=== PATIENT | male | born 1940 | race Two or more races ===

== ENCOUNTER 2021-12-28 12:54 | Emergency (ER) | payer MEDICAID, MEDICARE, OTHER ==
[2021-12-28 14:42] LABS: Basophils # (auto) 0 10 ^3/uL (0-0.2); Basophils % (auto) 0.5 % (0.0-2.0); Eosinophils # (auto) 0 10 ^3/uL (0-0.8); Eosinophils % (auto) 0.2 % (0.0-7.0); Hematocrit 39.2 % (41.0-53.0); Hemoglobin 13.3 g/dL (13.5-17.5); Lymphocytes # (auto) 0.6 10 ^3/uL (0.4-5.4); Lymphocytes % (auto) 6.7 % (10.0-50.0); Mean Corpuscular Hemoglobin 31.2 pg (28.0-32.0); Mean Corpuscular Hgb Conc. 33.9 g/dL (32.0-36.0); Monocytes # (auto) 0.4 10 ^3/uL (0-1.3); Monocytes % (auto) 4.5 % (0.0-12.0); Neutrophils # (auto) 7.3 10 ^3/uL (1.6-8.6); Neutrophils % (auto) 88.1 % (37.0-80.0); Red Blood Cells 4.26 10^6/uL (4.5-5.90); Red Cell Distribution Width 13.6 % (11.8-14.3); White Blood Cell 8.3 10^3/uL (4.4-10.8)
[2021-12-28 15:03] LABS: Calcium 8.8 mg/dL (8.5-10.1); Potassium 4.9 mmol/L (3.5-5.1)
[2021-12-28 15:04] LABS: Bilirubin, Total 0.6 mg/dL (0.2-1.0); Total Protein 6.9 g/dL (6.4-8.2)
[2021-12-28 15:48] LABS: INR 1.06 (0.9-1.15); Partial Thromboplastin Time 28.6 sec (24.6-33.4)
== END 2021-12-28 17:12 | disposition left against medical advice (07) ==
LOC: ER 12:54 → EDBD 12:54 → ER 17:12
DX: S01.01XA Laceration without foreign body of scalp, initial encounter (principal); G89.29 Other chronic pain; M54.9 Dorsalgia, unspecified; W01.0XXA Fall on same level from slipping, tripping and stumbling without subsequent striking against object, initial encounter; Y93.89 Activity, other specified; Y92.89 Other specified places as the place of occurrence of the external cause; Y99.8 Other external cause status
CPT/HCPCS: 12005; 36415; 70450; 71045; 80053; 83880; 84484; 85025; 85610; 85730

== ENCOUNTER 2022-01-10 09:09 | Emergency (ER) | payer MEDICAID ==
[~2022-01-10] VITALS: Ht 160 cm; Wt 145.0 kg
[2022-01-10 10:40] VITALS: BP 131/61
== END 2022-01-10 11:05 | disposition home or self-care (01) ==
LOC: ER 09:09
DX: S01.81XD Laceration without foreign body of other part of head, subsequent encounter (principal); W18.39XD Other fall on same level, subsequent encounter

== ENCOUNTER 2024-02-02 10:05 | Inpatient (IN) | payer OTHER, MEDICARE, MEDICAID ==
[~2024-02-02] VITALS: Ht 160 cm; Wt 61.0 kg
--- NOTE | 2024-02-02 11:14 | ED.PDOC ---
HPI (NEURO) HPI Comments 83 year old male presents to the ED with chief complaint of headache. Patient reports that he has been experiencing a headache for the past few days along with associated weakness since this morning. Patient relays that he was unable to stand on his own this morning and fell right away due to being too weak. Patient denies any chest pain, SOB, N/V/D, abdominal pain, dizziness, numbness, or blurred vision. Chief Complaint: Flu like Time Seen by MD: 11:11 Primary Care Provider: MENDEZ Reviewed Notes: Nurses Notes, Medications, Allergies Information Source: Patient Mode of Arrival: Wheelchair Severity: Moderate Dizziness/Weakness Severity: Unable to do activities Headache Severity: Moderate Timing: Hours Duration: Since onset Prehospital treatment: None Headache Quality: Aching Headache Location: Generalized Weakness Location: Generalized Onset: At rest Circumstances: Spontaneous Symptoms: Weakness History of: None Modifying factors: Nothing Associated Signs and Symptoms: Headache, Weakness Past Medical History PAST MEDICAL HISTORY: Denies Surgical History: Denies all surgeries Family History Family History: Reviewed,noncontributory to illness Social History Smoker: Non-Smoker Alcohol: Denies ETOH Use Drugs: Denies Drug Use Lives In: Home Constitutional: reports: weakness; denies: chills, diaphoresis, fatigue, fever, malaise, sweats, others EENTM: denies: blurred vision, double vision, ear bleeding, ear discharge, ear drainage, ear pain, ear ringing, eye pain, eye redness, hearing loss, mouth pain, mouth swelling, nasal discharge, nose bleeding, nose congestion, nose pain, photophobia, tearing, throat pain, throat swelling, voice changes, others Respiratory: denies: cough, hemoptysis, orthopnea, SOB at rest, shortness of breath, SOB with excertion, stridor, wheezing, others Cardiovascular: denies: chest pain, dizzy spells, diaphoresis, Dyspnea on exertion, edema, irregular heart beat, left arm pain, lightheadedness, palpitations, PND, syncope, others Gastrointestinal: denies: abdomen distended, abdominal pain, blood streaked bowels, constipated, diarrhea, dysphagia, difficulty swallowing, hematemesis, melena, nausea, poor appetite, poor fluid intake, rectal bleeding, rectal pain, vomiting, others Genitourinary: denies: burning, dysuria, flank pain, frequency, hematuria, incontinence, penile discharge, penile sore, pain, testicle pain, testicle swelling, urgency, others Neurological: reports: headache; denies: dizziness, fainting, left sided numbness, left sided weakness, numbness, paresthesia, pre-existing deficit, right sided numbness, right sided weakness, seizure, speech problems, tingling, tremors, weakness, others Musculoskeletal: denies: back pain, gout, joint pain, joint swelling, muscle pain, muscle stiffness, neck pain, others Integumetry: denies: bruises, change in color, change in hair/nails, dryness, laceration, lesions, lumps, rash, wounds, others Allergic/Immunocompromised: denies: Difficulty Healing, Frequent Infections, Hives, Itching, others Hematologic/Lymphatic: denies: anemia, blood clots, easy bleeding, easy bruising, swollen glands, others Endocrine: denies: excessive hunger, excessive sweating, excessive thirst, excessive urination, flushing, intolerance to cold, intolerance to heat, unexplained weight gain, unexplained weight loss, others Psychiatric: denies: anxiety, bipolar disorder, depression, hopeless, panic disorder, schizophrenia, sleepless, suicidal, others All Other Systems: Reviewed and Negative Physical Exam General Appearance: Moderate Distress, Normal HEENT: Normal ENT Inspection, PERRL/EOMI Neck: Full Range of Motion, Non-Tender, Normal, Normal Inspection Respiratory: Chest Non-Tender, Lungs Clear, No Accessory Muscle Use, No Respiratory Distress, Normal Breath Sounds Cardiovascular: No Edema, No JVD, No Murmur, No Gallop, Normal Peripheral Pulses, Regular Rate/Rhythm Breast Exam: Deferred Gastrointestinal: No Organomegaly, Non Tender, No Pulsatile Mass, Normal Bowel Sounds, Soft Genitalia: Deferred Pelvic: Deferred Rectal: Deferred Extremities: No calf tenderness, Normal capillary refill, Normal inspection, Normal range of motion, Non-tender, No pedal edema Musculoskeletal : Apperance: Normal Neurologic: Alert, porcelain enamel repairer II-XII nml as Tested, No Motor Deficits, Normal Affect, Normal Mood, No Sensory Deficits Cerebellar Function: NOT DONE Reflexes: NOT DONE Skin: Dry, Normal Color, Warm Peripheral Pulses: 3+ Radial (R), 3+ Radial (L) Lymphatic: No Adenopathy Was a procedure done? Was a procedure done?: No Differential Diagnosis (SZ) Seizure: Psychogenic Seizure, Closed Head Injury, CVA/TIA X-Ray, Labs, Meds, VS Vital Signs Date Time Temp Pulse Resp B/P (MAP) Pulse Ox O2 Delivery O2 Flow Rate FiO2 02/02/24 15:00 82 16 98 Room Air* 0 21 02/02/24 15:00 98.1 82 16 119/65 (83) 98 98.1 02/02/24 10:20 98.6 83 16 112/65 (81) 98 Lab Test 02/02/24 11:06 Range/Units White Blood Count 8.3 4.4-10.8 10^3/uL Red Blood Count 4.07 L 4.5-5.90 10^6/uL Hemoglobin 12.6 L 13.5-17.5 g/dL Hematocrit 36.9 L 41.0-53.0 % Mean Corpuscular Volume 90.5 80.0-100.0 fL Mean Corpuscular Hemoglobin 31.0 28.0-32.0 pg Mean Corpuscular Hemoglobin Concent 34.3 32.0-36.0 g/dL Red Cell Distribution Width 14.2 11.8-14.3 % Platelet Count 188 140-450 10^3/uL Mean Platelet Volume 6.7 L 6.9-10.8 fL Neutrophils (%) (Auto) 94.2 H 37.0-80.0 % Lymphocytes (%) (Auto) 2.7 L 10.0-50.0 % Monocytes (%) (Auto) 3.0 0.0-12.0 % Eosinophils (%) (Auto) 0.0 0.0-7.0 % Basophils (%) (Auto) 0.1 0.0-2.0 % Neutrophils # (Auto) 7.8 1.6-8.6 10 ^3/uL Lymphocytes # (Auto) 0.2 L 0.4-5.4 10 ^3/uL Monocytes # (Auto) 0.2 0-1.3 10 ^3/uL Eosinophils # (Auto) 0 0-0.8 10 ^3/uL Basophils # (Auto) 0 0-0.2 10 ^3/uL Nucleated Red Blood Cells 0.0 % Sodium Level 137 136-145 mmol/L Potassium Level 4.3 3.5-5.1 mmol/L Chloride Level 103 98-107 mmol/L Carbon Dioxide Level 27 20-31 mmol/L Anion Gap 7 5-15 Blood Urea Nitrogen 18 9-23 mg/dL Creatinine 1.19 0.700-1.30 mg/dL Glomerular Filtration Rate Calc 60 >90 mL/min BUN/Creatinine Ratio 15.1 10.0-20.0 Serum Glucose 131 H 74-106 mg/dL Calcium Level 9.5 8.7-10.4 mg/dL [place] [id number] Ph: [phone] DIAGNOSTIC IMAGING Diagnostic Imaging Report : [id number] Signed PATIENT: LLOA CARTER ACCT: [id number] UNIT: [id number] : 1940 LOC: ER ROOM / BED: / AGE / SEX: 83 / M ADM STATUS: REG ER SERVICE 1051 ORDERING PHYSICIAN: TONI JIMENEZ MD PROCEDURE(s): CXRP - CHEST PORTABLE REASON: sob ORDER NUMBER(s): [id number], ACCESSION NUMBER(s): [id number] CHEST RADIOGRAPH Indication: sob Technique: Single frontal view of the chest was obtained Comparison: CHEST PORTABLE on DOS: 12/28/21 FINDINGS: Lines and Tubes: None Lungs: Left basilar opacity. Pleura: No effusion. No pneumothorax. Cardiomediastinal contours: Cardiomegaly. Bones: No acute osseous abnormality. Thoracolumbar hardware noted. IMPRESSION: 1. Left basilar opacity. ATED BY: MOHIT RONDON MD DICTATED DATE/TIME: 02/02/24 115 SIGNED BY: MOHIT RONDON MD SIGNED DATE/TIME: 02/02/24 115 CC: Patient alert. He has been having headaches wishes chronic. Vitals stable. Answering all questions. Possible pneumonia. More than the headache she has been having generalized body aches. Establish intravenous access. Was given Rocephin. Was given azithromycin. Chest shows early pneumonia. Explained to the patient. Continue cardiac monitoring. Time of 1ST Reevaluation: 12:11 Reevaluation 1ST: Unchanged Patient Education/Counseling: Diagnosis, Treatment Family Education/Counseling: No Family Present Additional Information I reviewed the following notes from patient's past medical encounters: 12/28/21 for head injury The following tests were ordered, and results were reviewed by me: Chest XR, CBC, BMP, UA I reviewed and agreed with the following test results read by other providers: Chest XR I discussed treatment and results with medical personnel. Departure 1 Departure Time of Disposition: 15:09 Impression: Primary Impression: Pneumonia Qualified Codes: J18.9 - Pneumonia, unspecified organism Disposition: ADMITTED INPATIENT Admit to: Med Surg Condition: Guarded Critical Care Note Critical Care Time?: Yes (45 min-critical care time only) Stability Stability form required: No Heart Score Heart Score: Heart Score Response (Comments) Value History N/A 0 EKG N/A 0 Age N/A 0 Risk Factors N/A 0 Troponin N/A 0 Total 0 I personally scribed for TONI JIMENEZ MD ([email or web address]) on 02/02/24 at 11:14. Electronically submitted by Chris Moran ([email or web address]). I personally scribed for TONI JIMENEZ MD ([email or web address]) on 02/02/24 at 13:43. Electronically submitted by Laura Rogers ([email or web address]). I personally scribed for TONI JIMENEZ MD ([email or web address]) on 02/02/24 at 13:44. Electronically submitted by Laura Rogers ([email or web address]). I personally scribed for TONI JIMENEZ MD ([email or web address]) on 02/02/24 at 17:15. Electronically submitted by Laura Rogers ([email or web address]). TONI JIMENEZ MD Feb 02, 2024 11:14
[2024-02-02 11:34] LABS: Basophils # (auto) 0 10 ^3/uL (0-0.2); Basophils % (auto) 0.1 % (0.0-2.0); Eosinophils # (auto) 0 10 ^3/uL (0-0.8); Hematocrit 36.9 % (41.0-53.0); Hemoglobin 12.6 g/dL (13.5-17.5); Lymphocytes # (auto) 0.2 10 ^3/uL (0.4-5.4); Lymphocytes % (auto) 2.7 % (10.0-50.0); Mean Corpuscular Hgb Conc. 34.3 g/dL (32.0-36.0); Mean Corpuscular Volume 90.5 fL (80.0-100.0); Monocytes # (auto) 0.2 10 ^3/uL (0-1.3); Neutrophils # (auto) 7.8 10 ^3/uL (1.6-8.6); Neutrophils % (auto) 94.2 % (37.0-80.0); Platelet Count (auto) 188 10^3/uL (140-450); Red Blood Cells 4.07 10^6/uL (4.5-5.90); Red Cell Distribution Width 14.2 % (11.8-14.3); White Blood Cell 8.3 10^3/uL (4.4-10.8)
[2024-02-02 11:43] LABS: Chloride 103 mmol/L (98-107); Potassium 4.3 mmol/L (3.5-5.1); Sodium 137 mmol/L (136-145)
[2024-02-02 11:44] LABS: Anion Gap 7 (5-15); Carbon Dioxide 27 mmol/L (20-31)
[2024-02-02 11:45] LABS: Calcium 9.5 mg/dL (8.7-10.4)
[2024-02-02 11:50] LABS: BUN/Creatinine Ratio 15.1 (10.0-20.0); Blood Urea Nitrogen 18 mg/dL (9-23)
--- NOTE | 2024-02-02 11:57 | DVH ---
CHEST RADIOGRAPH Indication: sob Technique: Single frontal view of the chest was obtained Comparison: CHEST PORTABLE on DOS: 12/28/21 FINDINGS: Lines and Tubes: None Lungs: Left basilar opacity. Pleura: No effusion. No pneumothorax. Cardiomediastinal contours: Cardiomegaly. Bones: No acute osseous abnormality. Thoracolumbar hardware noted. IMPRESSION: 1. Left basilar opacity.
[2024-02-02 12:02] LABS: Glucose 131 mg/dL (74-106)
[2024-02-02 15:00] VITALS: PULSE 82; RESP 16; O2SAT 98
--- NOTE | 2024-02-02 15:44 | DVHHP2 ---
History of Present Illness Reason for Visit: Left shoulder pain status post fall from bed History of Present Illness Jovon Landin is a 83-year-old male with past medical history of hypertension, hyperlipidemia, COPD, and on hospice care who presents to the ED today for left shoulder pain after a fall this morning. Patient states that he was dizzy and he fell today also 2 days ago. Patient states that he lives alone and he also has a hospice nurse who comes and sees him for his heart problem. Patient denies any chest pain, shortness of breath, fever, chills, nausea, vomi ting, dizziness, diarrhea, lightheadedness, and abdominal pain. Patient's daughter Dori reported that the patient was constipated and took lactulose last couple of days. Cardiovascular: HTN, hyperipidemia Pulmonary: COPD Past Surgical History: Other Past Surgical History Back surgery Family History: None Smoke: No ALCOHOL: none Drugs: None Lives: Alone Domestic Violence: Neg Review of Systems Constitutional: No: Fever, Chills, Sweats, Weakness, Malaise, Other Eyes: No: Pain, Vision change, Conjunctivae inflammation, Eyelid inflammation, Other, Redness ENT: No: Ear pain, Ear discharge, Nose pain, Nose discharge, Nose congestion, Mouth pain, Mouth swelling, Throat pain, Throat swelling, Other Respiratory: No: Cough, Dry, Shortness of breath, SOB with excertion, Wheezing, Hemoptysis, Pleuritic Pain, Sputum, Wheezing, Other Cardiovascular: No: Chest Pain, Palpitations, Orthopnea, Paroxysmal Noc. Dyspnea, Edema, Lt Headedness, Other Gastrointestinal: Constipation, Other (constipated); No: Nausea, Vomiting, Ab dominal Pain, Diarrhea, Melena, Hematochezia Genitourinary: No Dysuria, No Frequency, No Incontinence, No Hematuria, No Retention, No Other Musculoskeletal: shoulder pain; No: other, neck pain, arm pain, back pain, hand pain, leg pain, foot pain Skin: No: Rash, Lesions, Jaundice, Bruising, Other Neurological: No: Weakness, Numbness, Incoordination, Change in speech, Confusion, Seizures, Other Allergies: Coded Allergies: NO KNOWN ALLERGIES (Unverified , 12/28/21) Exam Vital Signs Vital Signs Date Time Temp Pulse Resp B/P (MAP) Pulse Ox O2 Delivery O2 Flow Rate FiO2 02/02/24 15:00 82 16 98 Room Air* 0 21 02/02/24 15:00 98.1 119/65 (83) 98.1 General Appearance: Alert, Oriented X3, Cooperative, No acute distress HEENT: Atraumatic, PERRLA, EOMI, Mucous membr. moist/pink Respiratory: Clear to auscultation, Normal air movement Cardiovascular: Regular rate, Normal S1, Normal S2, No murmurs Abdominal: Normal bowel sounds, Soft, No tenderness, No hepatospenomegaly, No masses Extremities: No clubbing, No cyanosis, No edema, Normal pulses, No tenderness/swelling Skin: No rashes, No breakdown, No significant lesion Neuro: Normal speech, Strength at 5/5 X4 ext, Normal tone, Sensation intact Psych/Mental Status: Mental status NL, Mood NL Labs/Xrays Labs Test 02/02/24 11:06 Range/Units White Blood Count 8.3 4.4-10.8 10^3/uL Red Blood Count 4.07 L 4.5-5.90 10^6/uL Hemoglobin 12.6 L 13.5-17.5 g/dL Hematocrit 36.9 L 41.0-53.0 % Mean Corpuscular Volume 90.5 80.0-100.0 fL Mean Corpuscular Hemoglobin 31.0 28.0-32.0 pg Mean Corpuscular Hemoglobin Concent 34.3 32.0-36.0 g/dL Red Cell Distribution Width 14.2 11.8-14.3 % Platelet Count 188 140-450 10^3/uL Mean Platelet Volume 6.7 L 6.9-10.8 fL Neutrophils (%) (Auto) 94.2 H 37.0-80.0 % Lymphocytes (%) (Auto) 2.7 L 10.0-50.0 % Monocytes (%) (Auto) 3.0 0.0-12.0 % Eosinophils (%) (Auto) 0.0 0.0-7.0 % Basophils (%) (Auto) 0.1 0.0-2.0 % Neutrophils # (Auto) 7.8 1.6-8.6 10 ^3/uL Lymphocytes # (Auto) 0.2 L 0.4-5.4 10 ^3/uL Monocytes # (Auto) 0.2 0-1.3 10 ^3/uL Eosinophils # (Auto) 0 0-0.8 10 ^3/uL Basophils # (Auto) 0 0-0.2 10 ^3/uL Nucleated Red Blood Cells 0.0 % Sodium Level 137 136-145 mmol/L Potassium Level 4.3 3.5-5.1 mmol/L Chloride Level 103 98-107 mmol/L Carbon Dioxide Level 27 20-31 mmol/L Anion Gap 7 5-15 Blood Urea Nitrogen 18 9-23 mg/dL Creatinine 1.19 0.700-1.30 mg/dL Glomerular Filtration Rate Calc 60 >90 mL/min BUN/Creatinine Ratio 15.1 10.0-20.0 Serum Glucose 131 H 74-106 mg/dL Calcium Level 9.5 8.7-10.4 mg/dL CHEST RADIOGRAPH Indication: sob Technique: Single frontal view of the chest was obtained Comparison: CHEST PORTABLE on DOS: 12/28/21 FINDINGS: Lines and Tubes: None Lungs: Left basilar opacity. Pleura: No effusion. No pneumothorax. Cardiomediastinal contours: Cardiomegaly. Bones: No acute osseous abnormality. Thoracolumbar hardware noted. IMPRESSION: 1. Left basilar opacity. Assessment/Plan Assessment/Plan Assessment/Plan: Rule out pneumonia Left shoulder pain status post fall X-ray left shoulder UA Chest x-ray IV antibiotics Labs EKG Chronic hypertension monitor Chronic hyperlipidemia monitor COPD resp txs FEN/PPX Diet HL DVT ppx - not indicated patient ambulating PUD ppx - not indicated no history of GI bleed or GERD Discussed plan of care with patient and nurse No home medications reconciled Admit to med surge Plan discussed with: Patient My Orders Orders - KOMAL ZAMARRIPA LEAD DEVELOPER Procedure Category Date Status Time Rapid Influenza A&B LAB 02/02/24 Logged 15:20 Covid19 Antigen [place] LAB 02/02/24 Logged L Shoulder 1v Xray XY 02/02/24 Logged 15:20 Admit ADMIT 02/02/24 Verified 15:35 Allergies VICKI 02/02/24 Verified 15:35 Code Status CODE 02/02/24 Verified 15:35 Hydrocodone-Acet PHA 02/02/24 Verified 5/325mg Tab ([place] 15:45 Ondansetron Hcl PHA 02/02/24 Verified (Zofran) 15:45 Complete Blood Count LAB 02/03/24 Verified 04:00 Comprehensive LAB 02/03/24 Verified Metabolic Panel 04:00 Cardiac DIET 02/02/24 Verified Diet-2gna,Lofat,Lochol Dinner Acetaminophen Tablet PHA 02/02/24 Verified (Tylenol Tablet) 15:45 Morphine Sulfate PHA 02/02/24 Verified Injection 15:45 Date of Service: Feb 02, 2024 Billing Provider: KOMAL ZAMARRIPA Common Visit Codes: [id number] INP/OBS CARE (HIGH) KOMAL ZAMARRIPA Feb 02, 2024 15:44
[2024-02-02] MEDS ORDERED: AZITHROMYCIN 500MG/ 250ML 250 ML IV ONE (15:45)
[2024-02-02] MEDS ORDERED: ALBUTEROL SULF 2.5 MG/0.5ML(0.5%) NEB SOLN NEB PRN (15:45)
[2024-02-02] MEDS ORDERED: IPRATROPIUM BROM 0.5 MG/2.5ML INH SOL NEB PRN (15:45)
--- NOTE | 2024-02-02 16:08 | DVH ---
CLINICAL INDICATION: left shoulder pain TECHNIQUE: 2 radiographic views of the left shoulder were obtained. Comparison: None FINDINGS/IMPRESSION: There is no evidence of acute fracture or dislocation. Moderate to severe degenerative changes of the glenohumeral joint. Superior displacement of the grayson ral head with narrowing of the acromial humeral interval consistent with chronic rotator cuff injury. The visualized lungs are clear. Partially visualized thoracolumbar fixation hardware.
[2024-02-02 16:17] LABS: Rapid Influenza A Negative (Negative); Rapid Influenza B Negative (Negative)
[2024-02-02 16:18] LABS: COVID19 ANTIGEN SOFIA FIA NEGATIVE (NEGATIVE)
[2024-02-02] MEDS: cefTRIAXone 1GM/50ML D5W 50 ML IV ONE (17:46)
[2024-02-02] MEDS: AZITHROMYCIN 250 MG TAB PO ONE (17:48)
[2024-02-02] MEDS: MORPHINE SULFATE INJ 2 MG/ml SYRG IV PRN (18:07)
[2024-02-02 21:30] VITALS: BP 131/60; PULSE 79; RESP 18; TEMP 98.1; O2SAT 95
[2024-02-02 23:00] VITALS: O2SAT 97
[2024-02-03] VITALS (10 sets, daily range): BP systolic 129–157; BP diastolic 60–86; PULSE 79–89; RESP 15–19; TEMP 97.7–98.4; O2SAT 95–98
[2024-02-03 07:26] LABS: Albumin 4.1 g/dL (3.2-4.8); Anion Gap 7 (5-15); BUN/Creatinine Ratio 16.2 (10.0-20.0); Blood Urea Nitrogen 17 mg/dL (9-23); Calcium 9.7 mg/dL (8.7-10.4); Carbon Dioxide 27 mmol/L (20-31); Chloride 105 mmol/L (98-107); Glucose 102 mg/dL (74-106); Potassium 3.9 mmol/L (3.5-5.1); Sodium 139 mmol/L (136-145)
[2024-02-03 07:27] LABS: Total Protein 6.9 g/dL (5.7-8.2)
[2024-02-03 07:36] LABS: Alanine Aminotransferase 155 U/L (7-40); Alkaline Phosphatase 319 U/L (46-116); Aspartate Aminotransferase 147 U/L (13-40)
[2024-02-03 08:06] LABS: Basophils # (auto) 0 10 ^3/uL (0-0.2); Basophils % (auto) 0.3 % (0.0-2.0); Eosinophils # (auto) 0.1 10 ^3/uL (0-0.8); Hematocrit 38.5 % (41.0-53.0); Hemoglobin 13.4 g/dL (13.5-17.5); Lymphocytes # (auto) 0.7 10 ^3/uL (0.4-5.4); Lymphocytes % (auto) 12.3 % (10.0-50.0); Mean Corpuscular Hemoglobin 31.3 pg (28.0-32.0); Mean Corpuscular Hgb Conc. 34.9 g/dL (32.0-36.0); Mean Corpuscular Volume 89.5 fL (80.0-100.0); Monocytes # (auto) 0.4 10 ^3/uL (0-1.3); Monocytes % (auto) 6.2 % (0.0-12.0); Neutrophils # (auto) 4.7 10 ^3/uL (1.6-8.6); Neutrophils % (auto) 80.2 % (37.0-80.0); Nucleated Red Blood Cells % 0.2 %; Platelet Count (auto) 199 10^3/uL (140-450); Red Cell Distribution Width 14.5 % (11.8-14.3); White Blood Cell 5.8 10^3/uL (4.4-10.8)
[2024-02-03] MEDS ORDERED: AZITHROMYCIN 500MG/ 250ML 250 ML IV SCH (10:00)
[2024-02-03] MEDS: AZITHROMYCIN 250 MG TAB PO SCH (10:00)
[2024-02-03] MEDS: cefTRIAXone 1GM/50ML D5W 50 ML IV SCH (10:00)
--- NOTE | 2024-02-03 14:38 | DVHPN2 ---
Reviewed: Care Plan, H&P, Labs, Medications, Previous Orders, Radiology Changes from previous H/P or p: No Changes Eyes: No Pain, No Vision change, No Conjunctivae inflammation, No Eyelid inflammation, No Other, No Redness ENT: No Ear pain, No Ear discharge, No Nose pain, No Nose discharge, No Nose congestion, No Mouth pain, No Mouth swelling, No Throat pain, No Throat swelling, No Other Cardiovascular: No Chest Pain, No Palpitations, No Orthopnea, No Paroxysmal Noc. Dyspnea, No Edema, No Lt Headedness, No Other Respiratory: No Cough, No Dry, No Shortness of breath, No SOB with excertion, No Wheezing, No Hemoptysis, No Pleuritic Pain, No Sputum, No Other Gastrointestinal: No Nausea, No Vomiting, No Abdominal Pain, No Diarrhea; C onstipation; No Melena, No Hematochezia; Other (constipated) Genitourinary: No Dysuria, No Frequency, No Incontinence, No Hematuria, No Retention, No Other Musculoskeletal: No other, No neck pain; shoulder pain; No arm pain, No back pain, No hand pain, No leg pain, No foot pain Skin: No Rash, No Lesions, No Jaundice, No Bruising, No Other Objective Vitals Vital Signs Date Time Temp Pulse Resp B/P (MAP) Pulse Ox O2 Delivery O2 Flow Rate FiO2 02/03/24 13:00 98.4 89 16 143/76 (98) 98 98.4 02/03/24 10:19 Room Air 0.0 02/03/24 10:19 21 Intake/Output Intake and Output 02/03/24 07:00 Intake Total 400 ml Output Total 150 ml Balance 250 ml Intake Oral 400 ml Output Urine Total 150 ml Medications Current Medications Medications Dose Ordered Sig/Erinn Route Start Time Stop Time Status Last Admin Dose Admin Acetaminophen/ Hydrocodone Bitart 1 tab Q4HP PRN PO 02/02/24 15:45 Ondansetron HCl 4 mg Q4HP PRN IV 02/02/24 15:45 Acetaminophen 650 mg Q6HP PRN PO 02/02/24 15:45 Morphine Sulfate 2 mg Q4HPRN PRN IV 02/02/24 15:45 02/03/24 08:43 2 MG Albuterol 2.5 mg Q4HPRN PRN NEB 02/02/24 15:45 Cancel Ipratropium [place] 0.5 mg Q4HPRN PRN NEB 02/02/24 15:45 Cancel Ceftriaxone Sodium 50 ml @ 100 mls/hr DAILY@09 IV 02/03/24 09:00 02/03/24 10:00 100 MLS/HR Azithromycin 500 mg DAILY PO 02/03/24 10:00 02/03/24 10:00 500 MG Laboratory Results Laboratory Tests 02/03/24 06:09 Chemistry Test 02/03/24 06:09 Albumin 4.1 g/dL (3.2-4.8) Calcium Level 9.7 mg/dL (8.7-10.4) Total Protein 6.9 g/dL (5.7-8.2) LFT Test 02/03/24 06:09 Alanine Aminotransferase (ALT) 155 U/L (7-40) H Alkaline Phosphatase 319 U/L (46-116) H Aspartate Amino Transferase (AST) 147 U/L (13-40) H Total Bilirubin 1.0 mg/dL (0.2-1.0) Labs and/or images reviewed: Labs reviewed by me, Image(s) reviewed by me Assessment/Plan Assessment/Plan Left shoulder pain status post mechanical fall 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 Quinones Hypertension Hypercholesterolemia COPD Flu test negative COVID test negative Possible left lower lobe pneumonia: Rocephin Patient is hospice revoked Hard of hearing Time spent 65 minutes Condition guarded Advanced care planning time 20 minutes Patient is full code Lives alone he niece. Plan discussed with: Patient Date of Service: Feb 03, 2024 Billing Provider: ESVIN PERERA MD Common Visit Codes: [id number] CARE 30-74 MIN ESVIN PERERA MD Feb 03, 2024 14:38
[2024-02-03] MEDS: LORazepam 0.5 MG TAB PO PRN (16:07)
[2024-02-03] MEDS: PANTOPRAZOLE 40 MG/10 ML VIAL INJ IV SCH (21:10)
[2024-02-03] MEDS: HYDROcodone-ACET 5/325MG TAB PO PRN (21:12)
[2024-02-04 01:00] VITALS: BP 137/75; PULSE 69; RESP 18; TEMP 97.9; O2SAT 96
[2024-02-04 05:00] VITALS: BP 130/60; PULSE 73; RESP 18; TEMP 97.5; O2SAT 97
[2024-02-04 09:00] VITALS: BP 142/77; PULSE 82; RESP 17; TEMP 98.2; O2SAT 97
--- NOTE | 2024-02-04 09:56 | DVHPN2 ---
Reviewed: Care Plan, H&P, Labs, Medications, Previous Orders, Radiology Changes from previous H/P or p: No Changes Eyes: No Pain, No Vision change, No Conjunctivae inflammation, No Eyelid inflammation, No Other, No Redness ENT: No Ear pain, No Ear discharge, No Nose pain, No Nose discharge, No Nose congestion, No Mouth pain, No Mouth swelling, No Throat pain, No Throat swelling, No Other Cardiovascular: No Chest Pain, No Palpitations, No Orthopnea, No Paroxysmal Noc. Dyspnea, No Edema, No Lt Headedness, No Other Respiratory: No Cough, No Dry, No Shortness of breath, No SOB with excertion, No Wheezing, No Hemoptysis, No Pleuritic Pain, No Sputum, No Other Gastrointestinal: No Nausea, No Vomiting, No Abdominal Pain, No Diarrhea; C onstipation; No Melena, No Hematochezia; Other (constipated) Genitourinary: No Dysuria, No Frequency, No Incontinence, No Hematuria, No Retention, No Other Musculoskeletal: No other, No neck pain; shoulder pain; No arm pain, No back pain, No hand pain, No leg pain, No foot pain Skin: No Rash, No Lesions, No Jaundice, No Bruising, No Other Objective Vitals Vital Signs Date Time Temp Pulse Resp B/P (MAP) Pulse Ox O2 Delivery O2 Flow Rate FiO2 02/04/24 09:00 98.2 82 17 142/77 (98) 97 98.2 02/03/24 20:00 Room Air* 0 21 Intake/Output Intake and Output 02/04/24 07:00 Intake Total 650 ml Output Total 475 ml Balance 175 ml Intake Oral 600 ml IV Total 50 ml Output Urine Total 475 ml # Voids 2 # Bowel Movements 1 Medications Current Medications Medications Dose Ordered Sig/Erinn Route Start Time Stop Time Status Last Admin Dose Admin Acetaminophen/ Hydrocodone Bitart 1 tab Q4HP PRN PO 02/02/24 15:45 02/04/24 06:00 1 TAB Ondansetron HCl 4 mg Q4HP PRN IV 02/02/24 15:45 Acetaminophen 650 mg Q6HP PRN PO 02/02/24 15:45 Morphine Sulfate 2 mg Q4HPRN PRN IV 02/02/24 15:45 02/03/24 15:20 2 MG Albuterol 2.5 mg Q4HPRN PRN NEB 02/02/24 15:45 Cancel Ipratropium [place] 0.5 mg Q4HPRN PRN NEB 02/02/24 15:45 Cancel Ceftriaxone Sodium 50 ml @ 100 mls/hr DAILY@09 IV 02/03/24 09:00 02/04/24 08:58 100 MLS/HR Azithromycin 500 mg DAILY PO 02/03/24 10:00 02/04/24 08:59 500 MG Pantoprazole Sodium 40 mg BID IV 02/03/24 22:00 02/04/24 08:58 40 MG Lorazepam 1 mg Q8HP PRN PO 02/03/24 14:45 02/03/24 16:07 1 MG Laboratory Results Laboratory Tests 02/03/24 06:09 Labs and/or images reviewed: Labs reviewed by me, Image(s) reviewed by me Assessment/Plan Assessment/Plan Left shoulder pain status post mechanical fall 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 Quinones Hypertension Hypercholesterolemia COPD Flu test negative COVID test negative Possible left lower lobe pneumonia: Rocephin Patient is hospice revoked Hard of hearing Time spent 55 minutes Condition guarded Patient requesting to be discharged to take care of his dog Awaiting ortho consultation Lives alone with his niece Plan discussed with: Patient My Orders Orders - ESVIN PERERA MD Procedure Category Date Status Time * Orthopedic Consult CONS 02/03/24 Transmitted 14:34 Pantoprazole PHA 02/03/24 In Process (Protonix) 22:00 Lorazepam Tablet PHA 02/03/24 In Process (Ativan Tablet) 14:45 Cardiac DIET 02/03/24 Verified Diet-2gna,Lofat,Lochol Dinner Date of Service: Feb 04, 2024 Billing Provider: ESVIN PERERA MD Common Visit Codes: [id number] INP/OBS CARE(HIGH) ESVIN PERERA MD Feb 04, 2024 09:56
[2024-02-04] MEDS: ACETAMINOPHEN 325 MG TAB PO PRN (12:38)
[2024-02-04 13:00] VITALS: BP 146/71; PULSE 66; RESP 18; TEMP 98.9; O2SAT 95
[2024-02-04] MEDS ORDERED: ONDANSETRON HCL 4 MG/2 ML VIAL IV PRN (16:15)
[2024-02-04] MEDS: ONDANSETRON HCL 4 MG/2 ML VIAL IV PRN (16:26)
[2024-02-04 17:00] VITALS: BP 141/72; PULSE 67; RESP 16; TEMP 98.1; O2SAT 96
[2024-02-04] MEDS ORDERED: ASPI-543 PO (17:03)
[2024-02-04] MEDS ORDERED: AML5T PO (17:03)
[2024-02-04] MEDS ORDERED: BISA10SU5 RE (17:03)
[2024-02-04] MEDS ORDERED: LACT10PA2 PO (17:03)
[2024-02-04] MEDS ORDERED: ALPR0.254 PO (17:03)
[2024-02-04] MEDS ORDERED: FLUT0.05 NAS (17:03)
[2024-02-04] MEDS ORDERED: TRAZ-181 PO (17:03)
[2024-02-04] MEDS ORDERED: DOCU-94 PO (17:03)
[2024-02-04] MEDS ORDERED: SENN-58 PO (17:03)
[2024-02-04] MEDS ORDERED: NITR0.4S29 SL (17:03)
[2024-02-04] MEDS ORDERED: MORP1CAP PO (17:03)
[2024-02-04] MEDS ORDERED: ONDA-155 PO (17:03)
[2024-02-04] MEDS ORDERED: SERT-206 PO (17:03)
[2024-02-04] MEDS ORDERED: OXY5T PO (17:03)
[2024-02-04 21:00] VITALS: BP 126/69; PULSE 65; RESP 16; TEMP 98.5; O2SAT 97
[2024-02-05] VITALS (7 sets, daily range): BP systolic 117–145; BP diastolic 62–75; PULSE 70–81; RESP 16–18; TEMP 97.8–98.8; O2SAT 93–99
[2024-02-05] MEDS: MELATONIN 5 MG TAB PO ONE ×2 (02:28→22:22)
--- NOTE | 2024-02-05 09:16 | DVHPN2 ---
Reviewed: Care Plan, H&P, Labs, Medications, Previous Orders, Radiology Changes from previous H/P or p: No Changes Eyes: No Pain, No Vision change, No Conjunctivae inflammation, No Eyelid inflammation, No Other, No Redness ENT: No Ear pain, No Ear discharge, No Nose pain, No Nose discharge, No Nose congestion, No Mouth pain, No Mouth swelling, No Throat pain, No Throat swelling, No Other Cardiovascular: No Chest Pain, No Palpitations, No Orthopnea, No Paroxysmal Noc. Dyspnea, No Edema, No Lt Headedness, No Other Respiratory: No Cough, No Dry, No Shortness of breath, No SOB with excertion, No Wheezing, No Hemoptysis, No Pleuritic Pain, No Sputum, No Other Gastrointestinal: No Nausea, No Vomiting, No Abdominal Pain, No Diarrhea; C onstipation; No Melena, No Hematochezia; Other (constipated) Genitourinary: No Dysuria, No Frequency, No Incontinence, No Hematuria, No Retention, No Other Musculoskeletal: No other, No neck pain; shoulder pain; No arm pain, No back pain, No hand pain, No leg pain, No foot pain Skin: No Rash, No Lesions, No Jaundice, No Bruising, No Other Objective Vitals Vital Signs Date Time Temp Pulse Resp B/P (MAP) Pulse Ox O2 Delivery O2 Flow Rate FiO2 02/05/24 08:46 81 18 120/81 02/05/24 05:00 98.4 93 98.4 02/04/24 20:00 Room Air* 0 21 Intake/Output Intake and Output 02/05/24 07:00 Intake Total 955 ml Output Total 400 ml Balance 555 ml Intake Oral 905 ml IV Total 50 ml Output Urine Total 400 ml # Voids 3 # Bowel Movements 3 Medications Current Medications Medications Dose Ordered Sig/Erinn Route Start Time Stop Time Status Last Admin Dose Admin Acetaminophen/ Hydrocodone Bitart 1 tab Q4HP PRN PO 02/02/24 15:45 02/04/24 18:04 1 TAB Ondansetron HCl 4 mg Q4HP PRN IV 02/02/24 15:45 02/04/24 16:26 4 MG Acetaminophen 650 mg Q6HP PRN PO 02/02/24 15:45 02/04/24 12:38 650 MG Morphine Sulfate 2 mg Q4HPRN PRN IV 02/02/24 15:45 02/05/24 08:46 2 MG Albuterol 2.5 mg Q4HPRN PRN NEB 02/02/24 15:45 Cancel Ipratropium [place] 0.5 mg Q4HPRN PRN NEB 02/02/24 15:45 Cancel Ceftriaxone Sodium 50 ml @ 100 mls/hr DAILY@09 IV 02/03/24 09:00 02/05/24 08:45 100 MLS/HR Azithromycin 500 mg DAILY PO 02/03/24 10:00 02/05/24 08:45 500 MG Pantoprazole Sodium 40 mg BID IV 02/03/24 22:00 02/05/24 08:45 40 MG Lorazepam 1 mg Q8HP PRN PO 02/03/24 14:45 02/03/24 16:07 1 MG Ondansetron HCl 4 mg Q4HPRN PRN IV 02/04/24 16:15 Laboratory Results Laboratory Tests 02/03/24 06:09 Labs and/or images reviewed: Labs reviewed by me, Image(s) reviewed by me Assessment/Plan Assessment/Plan Left shoulder pain status post mechanical fall 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 Quinones Hypertension Hypercholesterolemia COPD Flu test negative COVID test negative Possible left lower lobe pneumonia: Rocephin Patient is hospice revoked Very Hard of hearing Time spent 45 minutes Condition guarded Patient requesting to be discharged to take care of his dog Awaiting ortho consultation Lives alone with his niece Plan discussed with: Patient My Orders Orders - ESVIN PERERA MD Procedure Category Date Status Time Mechanical Soft Diet DIET 02/04/24 Transmitted Lunch Ondansetron Hcl PHA 02/04/24 In Process (Zofran) 16:15 * Room Service Waiter/Waitress CONS 02/04/24 Transmitted Consult Date of Service: Feb 05, 2024 Billing Provider: ESVIN PERERA MD Common Visit Codes: [id number] INP/OBS CARE(HIGH) ESVIN PERERA MD Feb 05, 2024 09:16
[2024-02-05] MEDS: PANTOPRAZOLE 40 MG TAB PO ONE (11:29)
[2024-02-06 01:00] VITALS: BP 125/78; PULSE 76; RESP 18; TEMP 98.6; O2SAT 96
[2024-02-06 05:00] VITALS: BP 134/70; PULSE 72; RESP 18; TEMP 98.4; O2SAT 96
--- NOTE | 2024-02-06 09:34 | DVHDS2 ---
Discharge Summary Date of Admission Feb 02, 2024 at 15:35 Date of Discharge: Feb 06, 2024 Labs/Diagnostic Data: Laboratory Results Test 02/03/24 06:09 02/02/24 15:50 White Blood Count 5.8 10^3/uL (4.4-10.8) Red Blood Count 4.30 10^6/uL (4.5-5.90) Hemoglobin 13.4 g/dL (13.5-17.5) Hematocrit 38.5 % (41.0-53.0) Mean Corpuscular Volume 89.5 fL (80.0-100.0) Mean Corpuscular Hemoglobin 31.3 pg (28.0-32.0) Mean Corpuscular Hemoglobin Concent 34.9 g/dL (32.0-36.0) Red Cell Distribution Width 14.5 % (11.8-14.3) Platelet Count 199 10^3/uL (140-450) Mean Platelet Volume 7.1 fL (6.9-10.8) Neutrophils (%) (Auto) 80.2 % (37.0-80.0) Lymphocytes (%) (Auto) 12.3 % (10.0-50.0) Monocytes (%) (Auto) 6.2 % (0.0-12.0) Eosinophils (%) (Auto) 1.0 % (0.0-7.0) Basophils (%) (Auto) 0.3 % (0.0-2.0) Neutrophils # (Auto) 4.7 10 ^3/uL (1.6-8.6) Lymphocytes # (Auto) 0.7 10 ^3/uL (0.4-5.4) Monocytes # (Auto) 0.4 10 ^3/uL (0-1.3) Eosinophils # (Auto) 0.1 10 ^3/uL (0-0.8) Basophils # (Auto) 0 10 ^3/uL (0-0.2) Nucleated Red Blood Cells 0.2 % Sodium Level 139 mmol/L (136-145) Potassium Level 3.9 mmol/L (3.5-5.1) Chloride Level 105 mmol/L (98-107) Carbon Dioxide Level 27 mmol/L (20-31) Anion Gap 7 (5-15) Blood Urea Nitrogen 17 mg/dL (9-23) Creatinine 1.05 mg/dL (0.700-1.30) Glomerular Filtration Rate Calc 70 mL/min (>90) BUN/Creatinine Ratio 16.2 (10.0-20.0) Serum Glucose 102 mg/dL (74-106) Calcium Level 9.7 mg/dL (8.7-10.4) Total Bilirubin 1.0 mg/dL (0.2-1.0) Aspartate Amino Transferase (AST) 147 U/L (13-40) Alanine Aminotransferase (ALT) 155 U/L (7-40) Alkaline Phosphatase 319 U/L (46-116) Total Protein 6.9 g/dL (5.7-8.2) Albumin 4.1 g/dL (3.2-4.8) Influenza Type A Antigen Negative (Negative) Influenza Type B Antigen Negative (Negative) SARS-CoV-2 Antigen (Rapid) Negative (NEGATIVE) Other Laboratory Tests 02/03/24 06:09 Brief Hx & Hospital Course: SEE DICTATED NOTE Condition at Discharge: Fair Final Diagnosis/Problems List FALL Discharge Disposition: Hospice - Home Discharge Instruct/Medications Diet: Regular Activity: No Restrictions, As Tolerated Follow Up/Referral: FU WITH HOSPICE Medications: PER HOSPICE Discharge Statement: "Patient was advised to return to the ER or call 911 if any headaches, dizziness, shortness of breath, chest pain, abdominal pain, bleeding, fevers, or worsening of medical condition. Patient was counseled about treatment plan, medications, possible side effects, patientverbalized understanding. All questions were answered to the best of my ability. This discharge took greater then 30 minutes in planning, reviewing documentation, counseling the patient, and discussing with other team members." ASSESSMENT ASSESSMENT Assessment FALL Date of Service: Feb 06, 2024 Billing Provider: LITZY SALINAS MD Common Visit Codes: 77634-FXH/[id number] DISCH DAY >30min Secondary Visit Codes: [id number] CARE PLAN 30 MINUTES LITZY SALINAS MD Feb 06, 2024 09:34
[2024-02-06 09:46] VITALS: BP 143/76; PULSE 68; RESP 18; TEMP 98.8; O2SAT 96
--- NOTE | 2024-02-06 09:56 | DVHDS ---
DATE OF DISCHARGE: 02/06/2024 The patient is an 83-year-old gentleman who was admitted after he had history of fall and dizziness and pain in the left shoulder. The patient has history of hypertension, COPD, hyperlipidemia, and is on hospice care. HOSPITAL COURSE: The patient had a left shoulder x-ray that showed [id number] [id number] of the glenohumeral joint with superior displacement of the humeral head consistent with chronic rotator cuff injury. The patient had a chest x-ray that showed a questionable left basilar infiltrate. The patient had elevated liver function tests. The patient's influenza and COVID tests were negative. I discussed with the patient's daughter at the bedside and the patient. At this time, they wished to be discharged home. The patient will be discharged to resume hospice care with [facility]. ADVANCE CARE PLANNING: The patient is a full code Time spent was 19 minutes. FINAL DIAGNOSES: * Left shoulder pain, status post fall. 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 * Hypertension. * Hyperlipidemia. * Chronic obstructive pulmonary disease. * Questionable left lung pneumonia. * Transaminitis. * Hospice care. Time spent in discharge planning and review of plan with the patient and family at the bedside was 38 minutes. MD AJ Rodgers/NAINA TID: [id number] RECEIPT: [id number]
[2024-02-06 10:15] VITALS: O2SAT 96
--- NOTE | 2024-02-07 06:07 | DVHINCON2 ---
Date of service: Feb 05, 2024 Reason for Consultation Left shoulder pain History of Present Illness 83 yo M sp fall and landed onto left arm. Pain/ trouble raising left arm. Patient has COPD and is on hospice. Past Medical History hypertension, COPD, hyperlipidemia, Allergies: Coded Allergies: NO KNOWN ALLERGIES (Unverified , 12/28/21) Home Meds Reported Medications Docusate Sodium (Colace) 100 Mg Cap, 100 MG PO BID, CAP 02/04/24 Trazodone HCl (Trazodone Hydrochloride) 50 Mg Tab, 100 MG PO QHSP, TAB 02/04/24 Sertraline Hcl (Sertraline Hcl) 50 Mg Tab, 100 MG PO QHSP for 30 Days, MG 02/04/24 Senna (Senokot) 8.6 Mg Tab, 2 TAB PO QHSP, #40 TAB 02/04/24 Oxycodone Hcl (OXYCODONE HCL) 5 Mg Tb, 10 MG PO Q6HP, TAB 02/04/24 Ondansetron HCl (Ondansetron) 4 Mg Tab, 4 MG PO Q8HP, TAB 02/04/24 Amlodipine Besylate (NORVASC TABLET) 5 Mg Tb, 2 TAB PO DAILY, #30 TAB 5 Refills 02/04/24 Nitroglycerin (NTROSTAT SUBLINGUAL) 0.4 Mg Sl, 0.4 MG SL PRN, TAB *MAY REPEAT EVERY 5 MINUTES X 3 TOTAL IF NO RELIEF, INITIATE ANALGESIC THERAPY. NOTIFY PHYSICIAN *Do not crush. 02/04/24 Morphine Sulfate Beads (Morphine Sulfate ER) 60 Mg Cap, 60 MG PO [id number], CAP 02/04/24 Lactulose (Lactulose) 10 Gm Jon, 10 GM PO DAILY, PACK 02/04/24 Fluticasone Propionate (Fluticasone Propionate) 0.05 % Cre, 50 MCG YOLANDA DAILY for 30 Days, MCG 02/04/24 Bisacodyl (BISACODYL) 10 Mg Sup, 10 MG RE DAILY for if no bowel movement in 3 days, SUPP 02/04/24 Aspirin (Aspir-Low) 81 Mg Tab, 81 MG PO DAILY for 30 Days, MG 02/04/24 Alprazolam (Alprazolam) 0.25 Mg Tab, 0.25 MG PO BID PRN for ANXIETY, TAB 02/04/24 Review of Systems neg except per HPI Vital Signs Vital Signs Date Time Temp Pulse Resp B/P (MAP) Pulse Ox O2 Delivery O2 Flow Rate FiO2 02/06/24 10:15 96 Nasal Cannula* 2 28 02/06/24 09:46 98.8 68 18 143/76 (98) 98.8 Physical Exam NAD LUE: Shoulder FF 80 abd 75 Labs/Diagnostic Data Labs Test 02/03/24 06:09 02/02/24 15:50 Range/Units White Blood Count 5.8 # 4.4-10.8 10^3/uL Red Blood Count 4.30 L 4.5-5.90 10^6/uL Hemoglobin 13.4 L 13.5-17.5 g/dL Hematocrit 38.5 L 41.0-53.0 % Mean Corpuscular Volume 89.5 80.0-100.0 fL Mean Corpuscular Hemoglobin 31.3 28.0-32.0 pg Mean Corpuscular Hemoglobin Concent 34.9 32.0-36.0 g/dL Red Cell Distribution Width 14.5 H 11.8-14.3 % Platelet Count 199 140-450 10^3/uL Mean Platelet Volume 7.1 6.9-10.8 fL Neutrophils (%) (Auto) 80.2 H 37.0-80.0 % Lymphocytes (%) (Auto) 12.3 10.0-50.0 % Monocytes (%) (Auto) 6.2 0.0-12.0 % Eosinophils (%) (Auto) 1.0 0.0-7.0 % Basophils (%) (Auto) 0.3 0.0-2.0 % Neutrophils # (Auto) 4.7 1.6-8.6 10 ^3/uL Lymphocytes # (Auto) 0.7 0.4-5.4 10 ^3/uL Monocytes # (Auto) 0.4 0-1.3 10 ^3/uL Eosinophils # (Auto) 0.1 0-0.8 10 ^3/uL Basophils # (Auto) 0 0-0.2 10 ^3/uL Nucleated Red Blood Cells 0.2 % Sodium Level 139 136-145 mmol/L Potassium Level 3.9 3.5-5.1 mmol/L Chloride Level 105 98-107 mmol/L Carbon Dioxide Level 27 20-31 mmol/L Anion Gap 7 5-15 Blood Urea Nitrogen 17 9-23 mg/dL Creatinine 1.05 0.700-1.30 mg/dL Glomerular Filtration Rate Calc 70 >90 mL/min BUN/Creatinine Ratio 16.2 10.0-20.0 Serum Glucose 102 74-106 mg/dL Calcium Level 9.7 8.7-10.4 mg/dL Total Bilirubin 1.0 0.2-1.0 mg/dL Aspartate Amino Transferase (AST) 147 H 13-40 U/L Alanine Aminotransferase (ALT) 155 H 7-40 U/L Alkaline Phosphatase 319 H 46-116 U/L Total Protein 6.9 5.7-8.2 g/dL Albumin 4.1 3.2-4.8 g/dL Influenza Type A Antigen Negative Negative Influenza Type B Antigen Negative Negative SARS-CoV-2 Antigen (Rapid) Negative NEGATIVE Plan/Recommendation 83 yo M with left rotator cuff arthropathy 1. WBAT 2. sling for comfort 3. PT 4. fu in [facility] ortho clinic in 2 weeks for poss injection therapy Plan discussed with: Patient SUNNY MANUEL MD Feb 07, 2024 06:07
== END 2024-02-06 11:00 | disposition hospice, home (50) | DRG 553 ==
LOC: ER 10:05 → EDBD 10:05 → EDUNIT# 10:05 → OVERFLOW 15:35 → CENTRAL 23:19
PROVIDERS: ATTEND Family Medicine
DX: M19.012 Primary osteoarthritis, left shoulder (principal); J18.9 Pneumonia, unspecified organism; J44.0 Chronic obstructive pulmonary disease with (acute) lower respiratory infection; E78.00 Pure hypercholesterolemia, unspecified; K59.00 Constipation, unspecified; Z20.822 Contact with and (suspected) exposure to COVID-19; R74.01 Elevation of levels of liver transaminase levels; R79.89 Other specified abnormal findings of blood chemistry; Z51.5 Encounter for palliative care
CPT/HCPCS: 36415; 71045; 73020; 80048; 80053; 85025; 87426; 87804; 96365; 97110; 97116; 97163; 97530; 99291; G0378; J2405; J2470